=== PATIENT | female | born 1950 | race Caucasian/White ===

== ENCOUNTER → 2016-11-15 | Outpatient (CLI) | payer MEDICARE, BC ==
[~2016-11-15] MED LIST: CALCIUM 600/VIT1 CAP PO; FOLIC ACID 11 MG/TA1 PO; FOLIC ACID 40400 MCG PO; FOSAMAX 70MG TA70 MG PO; GENTEAL 0.25%-025 ML OP; GLUCOSAMINE & C1 CA2 PO; GLUCOSAMINE CHO1 CAP PO; MULTIVITAMIN FO1 CAP PO; NOLVADEX 1010 MG/TAB PO; NORCO 325 MG-51 TAB PO; OMEGA-3 FISH1000 MG PO; OMEGA-3 FISH1200 MG PO; PLAQUENIL 200M200 MG PO; PREDNISONE 5MG5 MG PO; PRILOSEC 20MG20 MG PO; THERATEARS PO; TYLENOL 500MG500 MG PO
== END ==
LOC: MC.RAD 13:00
DX: Z12.31 Encounter for screening mammogram for malignant neoplasm of breast (principal); R92.1 Mammographic calcification found on diagnostic imaging of breast; Z85.3 Personal history of malignant neoplasm of breast

== ENCOUNTER 2017-05-03 06:54 | Day surgery (SDC) | payer MEDICARE, BC ==
[2017-05-03] VITALS (7 sets, daily range): BP systolic 128–157; BP diastolic 48–82; PULSE 54–66; TEMP 97.5–98.3
[~2017-05-03] VITALS: Ht 157.5 cm; Wt 74.8 kg
[~2017-05-03 06:54] MED LIST changes: -FOSAMAX 70MG TA70 MG PO; -GENTEAL 0.25%-025 ML OP; -GLUCOSAMINE & C1 CA2 PO; -THERATEARS PO; -TYLENOL 500MG500 MG PO
[2017-05-03] MEDS ORDERED: TYLENOL 500MG500 MG PO (07:27)
[2017-05-03] MEDS ORDERED: GENTEAL 0.25%-025 ML OP (07:28)
[2017-05-03] MEDS ORDERED: GLUCOSAMINE & C1 CA2 PO (07:29)
[2017-05-03] MEDS ORDERED: THERATEARS PO (07:29)
[2017-05-03] MEDS ORDERED: FOSAMAX 70MG TA70 MG PO (07:42)
== END 2017-05-03 11:06 | disposition home or self-care (01) ==
LOC: SDCO 06:54
DX: Z12.11 Encounter for screening for malignant neoplasm of colon (principal); K57.30 Diverticulosis of large intestine without perforation or abscess without bleeding; K64.0 First degree hemorrhoids
CPT/HCPCS: OP; J2250; J2405; J3010; J7030

== ENCOUNTER → 2017-08-02 | Outpatient (CLI) | payer MEDICARE, BC ==
[~2017-08-02] MED LIST changes: +FOSAMAX 70MG TA70 MG PO; +GENTEAL 0.25%-025 ML OP; +GLUCOSAMINE & C1 CA2 PO; +THERATEARS PO; +TYLENOL 500MG500 MG PO
== END ==
LOC: COL.RAD 08:52
DX: M06.812 Other specified rheumatoid arthritis, left shoulder (principal); M25.522 Pain in left elbow
CPT/HCPCS: J3301; Q9967

== ENCOUNTER → 2017-11-23 | Outpatient (CLI) | payer MEDICARE, BC | LOC: MC.RAD 14:00 | DX: Z12.31 Encounter for screening mammogram for malignant neoplasm of breast (principal); Z85.3 Personal history of malignant neoplasm of breast ==

== ENCOUNTER → 2019-04-19 | Outpatient (CLI) | payer MEDICARE, BC ==
[~2019-04-19] MED LIST changes: +ACIDOPHILIS PO; -GENTEAL 0.25%-025 ML OP; +GENTEAL 10 ML10 M1 OP; +NORCO 325 MG-7.1 TAB PO; -THERATEARS PO; +THERATEARS SGL PO; +ULTRAM 50MG TAB50 MG PO
== END ==
LOC: MC.RAD 13:57
DX: Z12.31 Encounter for screening mammogram for malignant neoplasm of breast (principal); Z98.890 Other specified postprocedural states; Z85.3 Personal history of malignant neoplasm of breast

== ENCOUNTER → 2021-05-12 | Outpatient (CLI) | payer MEDICARE, BC | LOC: MC.RAD 11:00 | DX: Z12.31 Encounter for screening mammogram for malignant neoplasm of breast (principal) ==

== ENCOUNTER → 2022-05-13 | Outpatient (CLI) | payer MEDICARE, BC | LOC: MC.RAD 09:37 | DX: Z12.31 Encounter for screening mammogram for malignant neoplasm of breast (principal) ==

== ENCOUNTER → 2022-06-23 | Outpatient (CLI) | payer MEDICARE, BC | LOC: COL.RAD 08:18 | DX: M19.022 Primary osteoarthritis, left elbow (principal) ==